=== PATIENT | female | born 1980 | race Caucasian/White ===

== ENCOUNTER → 2016-07-02 | Outpatient (REF) | payer OTHER | LOC: LAB 09:59 | PROVIDERS: ATTEND Family Medicine | DX: Z53.9 Procedure and treatment not carried out, unspecified reason (principal) ==

== ENCOUNTER → 2016-07-11 | Outpatient (CLI) | payer OTHER ==
[~2016-07-11] MED LIST: methylPREDNISolone 80 MG/ML (DEPO MEDROL) VIAL IM ONE
== END ==
LOC: PMC 08:30
PROVIDERS: ATTEND Family Medicine
PROC: 3E0R33Z Introduction of Anti-inflammatory into Spinal Canal, Percutaneous Approach (ICD-10-PCS; principal; 2016-07-11)
DX: M51.36 Other intervertebral disc degeneration, lumbar region (principal); G54.9 Nerve root and plexus disorder, unspecified; M51.26 Other intervertebral disc displacement, lumbar region; M54.17 Radiculopathy, lumbosacral region

== ENCOUNTER → 2016-09-08 | Outpatient (REF) | payer OTHER, MEDICAID ==
[~2016-09-08] MED LIST changes: +OXYC1TAB87 PO; -methylPREDNISolone 80 MG/ML (DEPO MEDROL) VIAL IM ONE
[2016-09-08 11:04] LABS: BASOPHILS % (AUTO) 0 % (0-2); EOSINOPHILS # (AUTO) 0.1 10^3uL; EOSINOPHILS % (AUTO) 1 % (0-4); MEAN CORPUSCULAR VOLUME 88 FL (80-100); MEAN PLATELET VOLUME 10.1 FL (6.0-9.5); MONOCYTES # (AUTO) 0.7 X10^3; MONOCYTES % (AUTO) 6 % (3-11); NEUTROPHILS % (AUTO) 56 % (51-67); PLATELET COUNT 253 10^3uL (150-450); WHITE BLOOD COUNT 10.77 10^3uL (4.0-11.0)
[2016-09-08 11:08] LABS: ALBUMIN 4.5 g/dL (3.4-5.0); ANION GAP 16.4 MEQ/L (3-15); CALCULATED IONIZED CALCIUM 4.2 mg/dL (3.8-4.6); TOTAL PROTEIN 7.5 g/dL (6.4-8.5)
== END ==
LOC: LAB 10:48
PROVIDERS: ATTEND Family Medicine
DX: E03.8 Other specified hypothyroidism (principal)
CPT/HCPCS: 80053; 84443; 85025

== ENCOUNTER → 2016-09-08 | Outpatient (CLI) | payer OTHER, MEDICAID ==
--- NOTE | 2016-09-08 13:54 | Diagnostic Imaging Report ---
INDICATION: Cough. COMPARISON: 09/09/2010. FINDINGS: There is some flattening of the diaphragms and expansion of the retrosternal air space, compatible with mild symmetrical air trapping, similar in appearance to the study of 2010. The heart size and vascularity are normal. There is no evidence for bronchiectasis. No airway thickening. No pneumonia or focal infiltrate. No effusion or pneumothorax. IMPRESSION: Clear mildly hyperexpanded lungs; otherwise, negative. Dictated by: Dictated on workstation # [id number]
== END ==
LOC: RAD 10:54
PROVIDERS: ATTEND Family Medicine
DX: R05 Cough (principal)
CPT/HCPCS: 71020